=== PATIENT | female | born 1980 | race Caucasian/White ===

== ENCOUNTER 2019-03-07 11:06 | Observation (INO) | payer BC, OTHER ==
[~2019-03-07] VITALS: Ht 157.5 cm; Wt 60.0 kg
[2019-03-07] MEDS ORDERED: D5%-LACTATED RINGERS 1,000 ML IV SCH (11:24)
[2019-03-07] MEDS ORDERED: OXYTOCIN 30U/ 0.9% NaCL 500ML 500 ML IV ONE (11:24)
[2019-03-07] MEDS ORDERED: OXYTOCIN 30U/ 0.9% NaCL 500ML 500 ML IV PRN (11:24)
[2019-03-07] MEDS ORDERED: LACTATED RINGERS 1,000 ML IV SCH ×2 (11:24→18:32)
[2019-03-07] MEDS ORDERED: ACETAMINOPHEN 325 MG TABLET PO PRN ×2 (11:30→23:30)
[2019-03-07] MEDS ORDERED: RHOGAM FROM BLOOD BANK 1 NOTE EA IM/IV PRN (11:30)
[2019-03-07] MEDS ORDERED: FENTANYL PF 100 MCG/2ML IVPush PRN ×2 (11:30→18:30)
[2019-03-07] MEDS ORDERED: SODIUM CITRATE/CITRIC ACID 15 ML UDC PO PRN (11:30)
[2019-03-07] MEDS ORDERED: OXYcodone/APAP 10/325MG TABLET PO PRN (11:30)
[2019-03-07] MEDS: LACTATED RINGERS 1,000 ML IV SCH ×2 (11:31→18:00)
[2019-03-07] MEDS ORDERED: MISOPROSTOL 200 MCG TABLET ONE ×4 (11:55→19:53)
[2019-03-07 12:02] LABS: BASOPHILS # (AUTO) 0.08 x10^3/uL (0-0.1); BASOPHILS % (AUTO) 1 % (0-1); EOSINOPHILS # (AUTO) 0.18 x10^3/uL (0-0.4); EOSINOPHILS % (AUTO) 2 % (1-7); LYMPHOCYTES # (AUTO) 2.85 x10^3/uL (1-3.4); LYMPHOCYTES % (AUTO) 23 % (22-44); MD NO; MEAN CORPUSCULAR HEMOGLOBIN 32.4 pg (27.0-34.8); MEAN CORPUSCULAR HGB CONC 32.9 g/dL (32.4-35.8); MEAN CORPUSCULAR VOLUME 98.4 fL (80-100); MEAN PLATELET VOLUME 8.5 fL (7.4-10.4); MONOCYTES # (AUTO) 1.21 x10^3/uL (0.2-0.8); MONOCYTES % (AUTO) 10 % (2-9); NEUTROPHILS % (AUTO) 66 % (42-75); PLATELET COUNT 285 x10^3/uL (130-400); RED BLOOD COUNT 3.43 x10^6/uL (3.82-5.3)
[2019-03-07] MEDS: MISOPROSTOL 200 MCG TABLET VG SCH ×3 (12:02→20:01)
[2019-03-07 12:23] VITALS: BP 101/57
[2019-03-07] MEDS ORDERED: FENTANYL/BUPIV./NS/PF 250 ML EPIDCONT SCH ×2 (12:52→18:32)
[2019-03-07] MEDS ORDERED: HYDROXYZINE PAMOATE 50MG CAP PO PRN (13:00)
[2019-03-07] MEDS ORDERED: OXYTOCIN 30U/ 0.9% NaCL 500ML 500 ML ONE (13:01)
[2019-03-07] MEDS ORDERED: FENTANYL PF 500 MCG, BUPIVACAINE/PF 0.5%, 30ML 62.5 ML in SODIUM CHLORIDE 0.9% 177.5 ML EPIDCONT SCH (13:30)
[2019-03-07] MEDS ORDERED: FENTANYL PF 100 MCG/2ML ONE (17:55)
[2019-03-07] MEDS ORDERED: LACTATED RINGERS 1,000 ML IVBOLUS PRN (19:00)
[2019-03-07] MEDS ORDERED: NALOXONE 0.4 MG/ML, 1ML IVPush PRN (19:00)
[2019-03-07] MEDS ORDERED: EPHEDRINE 50 MG/ML, 1ML IVPush PRN (19:00)
[2019-03-07] MEDS ORDERED: ACETAMINOPHEN 325 MG TABLET ONE (23:19)
[2019-03-08] MEDS ORDERED: OXYTOCIN 30U/ 0.9% NaCL 500ML 500 ML ONE (00:29)
[2019-03-08] MEDS ORDERED: OXYcodone/APAP 5/325MG TABLET ONE ×2 (01:17→06:27)
[2019-03-08] MEDS: OXYcodone/APAP 5/325MG TABLET PO PRN ×2 (01:19→06:34)
[2019-03-08] MEDS ORDERED: LEVOTHYROXINE 50 MCG TABLET PO SCH (06:00)
[2019-03-08] MEDS ORDERED: IBUPROFEN 800 MG TABLET ONE (08:40)
[2019-03-08] MEDS ORDERED: IBUPROFEN 200 MG TABLET PO ONE (09:00)
== END 2019-03-08 07:40 | disposition home or self-care (01) ==
LOC: LDIP 11:06 → INTOOBSV 11:06
PROVIDERS: ADMIT Obstetrics & Gynecology; ATTEND Obstetrics & Gynecology
DX: O36.4XX0 Maternal care for intrauterine death, not applicable or unspecified (principal); O69.1XX0 Labor and delivery complicated by cord around neck, with compression, not applicable or unspecified; O34.211 Maternal care for low transverse scar from previous cesarean delivery; Z37.1 Single stillbirth; Z3A.17 17 weeks gestation of pregnancy; Z88.8 Allergy status to other drugs, medicaments and biological substances
CPT/HCPCS: 36415; 59821; 85025; 85460; 85598; 85610; 85613; 85670; 85730; 86146; 86147; 86850; 86900; 88300; 88305; 96365; 96366; 96375; G0378; J2590; J3010; J7050; J7120; S0020; 85732